=== PATIENT | female | born 1950 | race Caucasian/White ===

== ENCOUNTER 2022-09-17 09:35 | Outpatient (CLI) | payer OTHER | END 2022-09-17 09:45 | disposition home or self-care (01) | LOC: RAD 09:35 | PROVIDERS: ATTEND Otolaryngology Otolaryngology/Facial Plastic Surgery | DX: M51.36 Other intervertebral disc degeneration, lumbar region (principal); M16.0 Bilateral primary osteoarthritis of hip; M62.830 Muscle spasm of back ==